=== PATIENT | male | born 1955 | race Caucasian/White ===

== ENCOUNTER 2017-07-08 08:22 | Day surgery (SDC) | payer OTHER ==
[~2017-07-08] VITALS: Ht 180.3 cm; Wt 84.6 kg
[2017-07-08] VITALS (7 sets, daily range): BP systolic 113–135; BP diastolic 64–86; PULSE 54–67; RESP 13–18; Ht 180.3 cm; Wt 84.6 kg
[~2017-07-08 08:22] MED LIST: CYCLOPENTOLATE 2% 2 ML OPH OPER SCH; DICLOFENAC 0.1% 2.5 ML OPH OPER SCH; LACTATED RINGER'S 1,000 ML IV SCH; LIDOCAINE 3.5% GEL TUBE OPER ONE; MOXIFLOXACIN 0.5% 3 ML OPH OPER SCH; PHENYLephrine 10% 5 ML OPH OPER SCH; TETRACAINE 0.5% 4 ML OPH OPER SCH; TROPICAMIDE 1% 3ML OPH OPER SCH
--- NOTE | 2017-07-08 08:48 | HPN ---
Date/Time of Note Date/Time of Note DATE: 07/08/17 TIME: 08:48 Interval H&P Admission Note Pt. seen H&P reviewed: No system changes IAN PROCTOR D.O. Jul 08, 2017 08:48
[2017-07-08] MEDS ORDERED: SIMV10TA PO (08:59)
[2017-07-08] MEDS ORDERED: LISI10TA2 PO (08:59)
[2017-07-08] MEDS ORDERED: LIDOCAINE 2%/EPI 30 ML INJ ONE (11:01)
[2017-07-08] MEDS ORDERED: EPINEPHrine 1 MG INJ ONE (11:01)
[2017-07-08] MEDS ORDERED: NA HYALURONATE/CHONDROITIN 0.5 ML SYG ONE (11:02)
[2017-07-08] MEDS ORDERED: TOBRAMYCIN 0.3% 3.5 GM OPH OINT ONE (11:03)
[2017-07-08] MEDS ORDERED: CARBACHOL 0.01% 1.5 ML OPH INJ ONE (11:03)
[2017-07-08] MEDS ORDERED: TRYPAN BLUE 0.5 ML SYG IO ONE (11:04)
[2017-07-08] MEDS ORDERED: CARBACHOL 0.01% 1.5 ML OPH INJ IO ONE (11:15)
[2017-07-08] MEDS ORDERED: TOBRAMYCIN/DEXAMETH 3.5 GM OPH OINT LEFT EYE ONE (11:15)
[2017-07-08] MEDS ORDERED: LIDOCAINE 2%/EPI MPF (SDV) 20 ML VIAL INJ ONE (11:15)
[2017-07-08] MEDS ORDERED: HYALURONATE/CHONDROITIN 1ML OPH INJ IO ONE (11:15)
[2017-07-08] MEDS ORDERED: NA HYALURONATE/CHONDROITIN 0.5 ML SYG LEFT EYE ONE (11:15)
[2017-07-08] MEDS ORDERED: LIDOCAINE 2% (SDV) 5 ML INJ ONE (11:23)
[2017-07-08] MEDS ORDERED: MIDAZOLAM 1 MG/ML 2 ML INJ ONE (11:23)
[2017-07-08] MEDS ORDERED: FENTAnyl 50 MCG/ML VIAL ONE (11:23)
[2017-07-08] MEDS ORDERED: PROPOFOL 20 ML ONE (11:23)
[2017-07-08] MEDS ORDERED: CEFAZOLIN 1 GM INJ ONE (11:28)
[2017-07-08] MEDS ORDERED: ONDANSETRON 4 MG INJ IV PRN (11:30)
[2017-07-08] MEDS ORDERED: HYDROmorphONE (0.2 MG/ML) 10ML SYG IV PRN (11:30)
[2017-07-08] MEDS ORDERED: PROCHLORPERAZINE 10 MG INJ IV PRN (11:30)
[2017-07-08] MEDS ORDERED: OXYCODONE/ACETAMINOPHEN (5/325) TAB PO PRN (11:30)
[2017-07-08] MEDS ORDERED: FENTAnyl 50 MCG/ML VIAL IV PRN (11:30)
--- NOTE | 2017-07-08 12:17 | SIPON ---
Date/Time of Note Date/Time of Note DATE: 07/08/17 TIME: 12:12 Operative Report Preoperative Diagnosis Senile cataract, left eye Postoperative Diagnosis Senile cataract,left eye Operation/Procedure Performed Cataract extraction via phacoemulsification and intraocular lens implantation, Left eye Surgeon: IAN PROCTOR D.O. Anesthesia Type: MAC Estimated Blood Loss: none Grafts/Implants Sandro SN60WF D Complications: no IAN PROCTOR D.O. Jul 08, 2017 12:17
--- NOTE | 2017-07-09 05:58 | OPR ---
DATE OF OPERATION: 07/08/2017 SURGEON: Maya Iniguez DO. ANESTHESIOLOGIST: Dr. Jamila MD. PREOPERATIVE DIAGNOSIS: Senile cataract, left eye. POSTOPERATIVE DIAGNOSIS: Senile cataract, left eye. OPERATION PERFORMED: Cataract extraction, via phacoemulsification with intraocular lens implantation, left eye was prepped for cataract surgery in the routine sterile technique. The retractor was placed into the left eye to keep the eyelids open. A clear corneal limbal incision was done with keratome, which was followed by injection of lidocaine with epinephrine, preservative free. Trypan Blue dye was injected to stain anterior capsulae, which was removed in 1 minute via irrigation aspiration with balanced salt solution. Then Viscoat material was injected and anterior capsulorrhexis was performed with cystotome and Utrata forceps. Hydrodissection and hydrodelineation was done and paracentesis was performed. Then [place] chopper and Phaco tip was inserted into the anterior chamber and the nucleus was divided into multiple pieces, each of them was emulsified successfully. Then the cortex removed via irrigation aspiration with balanced salt solution. Additional Viscoat was injected into posterior chamber, and the Sandro SN60WF 21.5 diopter lens was inserted into the posterior chamber. The lens was stable and centered. Remaining Viscote and Discovisc removed via irrigation and aspiration with balanced salt solution. Tobradex injected into the conjunctival sac and a patch was placed over the closed eyelid. The patient was transferred to the Recovery room in stable condition. Postoperative instructions and appointment was given. Dictated By: Maya Iniguez DO /[email or web address] /Document#: [id number] CARMEN
== END 2017-07-08 13:50 | disposition home or self-care (01) ==
LOC: SDS 08:22 → EDBD 10:30 → SDS 13:50
PROVIDERS: ATTEND Ophthalmology
DX: H25.9 Unspecified age-related cataract (principal); E11.9 Type 2 diabetes mellitus without complications; I10 Essential (primary) hypertension; E78.5 Hyperlipidemia, unspecified
CPT/HCPCS: 66984; 82962; 84132; J0171; J0690; J2250; J3010; V2632; Z7512; Z7610

== ENCOUNTER 2018-01-27 06:08 | Day surgery (SDC) | END 2018-01-27 11:24 | disposition home or self-care (01) ==